=== PATIENT | female | born 1955 | race Caucasian/White ===

== ENCOUNTER 2024-05-09 22:31 | Emergency (ER) | payer MEDICARE, BC ==
[2024-05-10 00:26] LABS: #Basophils 0.08 10x3/uL (0.0-0.2); #Neutrophils 3.48 10x3/uL (1.5-8.4); %Basophils 1.1 % (0.0-2.0); %Lymphocytes 40.9 % (18.0-47.0); %Monocytes 7.9 % (0.0-10.0); Hematocrit 40.4 % (34.9-44.5); Hemoglobin 13.6 g/dL (12.0-15.5); Mean Corpuscular HGB CONC 33.7 g/dL (32.0-36.0); Mean Corpuscular Hemoglobin 30.1 pg (27.0-33.0); Mean Corpuscular Volume 89.4 fL (81.6-98.3); Mean Platelet Volume 9.8 fL (7.4-10.4); Platelet Count 293 10x3/uL (150-450); RBC Distribution Width 13.2 % (11.5-14.5); Red Blood Cell (RBC) Count 4.52 10x6/uL (3.90-5.03); White Blood Cell (WBC) Count 7.6 10x3/uL (3.5-10.5)
[2024-05-10 00:35] LABS: Acetaminophen Less than 10 mcg/mL (10.0-30.0); Alcohol Less than 10.0 mg/dL (Less than 10); Salicylate Less than 8.0 mg/dL (15.0-30.0)
[2024-05-10 00:36] LABS: ALT (SGPT) 14 U/L (8-55); AST (SGOT) 20 U/L (5-34); Alkaline Phosphatase 84 U/L (40-110); Anion Gap 12 mmol/L (10-20); BUN (Urea Nitrogen) 17 mg/dL (9.8-20.1); Bilirubin, Total 0.3 mg/dL (0.2-1.2); Calc. Creatinine Clearance 0 mL/min (70-130); Calcium 9.8 mg/dL (7.8-10.44); Carbon Dioxide 25 mmol/L (23-31); Chloride 106 mmol/L (98-107); Estimated GFR 50; Globulin 3.1 g/dL (2.4-3.5); Glucose 89 mg/dL (80-115); Potassium 4.4 mmol/L (3.5-5.1); Protein, Total 7.1 g/dL (5.8-8.1); Sodium 139 mmol/L (136-145)
== END 2024-05-10 02:13 ==
LOC: CSHERS 22:31
DX: F31.9 Bipolar disorder, unspecified (principal); E03.9 Hypothyroidism, unspecified; I10 Essential (primary) hypertension; Z79.899 Other long term (current) drug therapy
CPT/HCPCS: 80053; 80178; 80307; 84443; 85025; 99285

== ENCOUNTER 2024-05-15 17:41 | Emergency (ER) | payer MEDICARE, BC ==
[2024-05-15 18:38] LABS: Bilirubin Neg (Negative); Blood, Urine 25 (Negative); Glucose, Urine (Dipstick) Normal (Negative); Ketone, Urine Negative (Negative); Leukocyte 500 (Negative); Nitrite Positive (Negative); Protein, Urine (Dipstick) Negative (Neg-Trace); Specific Gravity, Urine 1.005 (1.005-1.030); Urobilinogen Normal mg/dL (Less than 2)
[2024-05-15 18:46] LABS: Clarity Hazy (Clear)
[2024-05-15 18:47] LABS: Bacteria/HPF 2+ HPF (None Seen); CAUTI Indications for Culture Alt mental st,lethar; RBC/HPF 0-3 HPF (0-3); Squamous Epithelial 0-3 HPF (0-3); WBC/HPF 21-50 HPF (0-3)
[2024-05-15 18:48] LABS: Urine Culture Reflex Yes Yes
[2024-05-15 18:59] LABS: #Basophils 0.08 10x3/uL (0.0-0.2); #Eosinphils 0.19 10x3/uL (0.0-0.5); #Monocytes 0.51 10x3/uL (0.0-1.1); #Neutrophils 3.88 10x3/uL (1.5-8.4); %Basophils 1.1 % (0.0-2.0); %Eosinophils 2.5 % (0.0-6.0); %Lymphocytes 37.6 % (18.0-47.0); %Monocytes 6.8 % (0.0-10.0); %Neutrophils 51.9 % (40.0-75.0); Hematocrit 38.4 % (34.9-44.5); Hemoglobin 12.9 g/dL (12.0-15.5); Mean Corpuscular HGB CONC 33.6 g/dL (32.0-36.0); Mean Corpuscular Hemoglobin 29.9 pg (27.0-33.0); Mean Corpuscular Volume 89.1 fL (81.6-98.3); Mean Platelet Volume 9.5 fL (7.4-10.4); Platelet Count 310 10x3/uL (150-450); Red Blood Cell (RBC) Count 4.31 10x6/uL (3.90-5.03); White Blood Cell (WBC) Count 7.5 10x3/uL (3.5-10.5)
[2024-05-15 19:15] LABS: ALT (SGPT) 10 U/L (8-55); AST (SGOT) 18 U/L (5-34); Albumin 3.9 g/dL (3.4-4.8); Alkaline Phosphatase 82 U/L (40-110); Anion Gap 13 mmol/L (10-20); BUN (Urea Nitrogen) 14 mg/dL (9.8-20.1); Bilirubin, Total 0.2 mg/dL (0.2-1.2); Calc. Creatinine Clearance 0 mL/min (70-130); Calcium 9.5 mg/dL (7.8-10.44); Carbon Dioxide 22 mmol/L (23-31); Chloride 106 mmol/L (98-107); Estimated GFR 52; Globulin 2.9 g/dL (2.4-3.5); Glucose 88 mg/dL (80-115); Lipase 39 U/L (8-78); Magnesium 2.4 mg/dL (1.6-2.6); Potassium 3.9 mmol/L (3.5-5.1); Protein, Total 6.8 g/dL (5.8-8.1); Sodium 137 mmol/L (136-145)
[2024-05-15 19:21] LABS: Troponin I Less than 0.010 ng/mL (< 0.028)
== END 2024-05-15 20:14 | disposition home or self-care (01) ==
LOC: CSHERS 17:41
DX: J32.0 Chronic maxillary sinusitis (principal); N39.0 Urinary tract infection, site not specified; I10 Essential (primary) hypertension; E78.00 Pure hypercholesterolemia, unspecified; F31.9 Bipolar disorder, unspecified; Z55.6 Problems related to health literacy
CPT/HCPCS: 36415; 70450; 71045; 72125; 80053; 81001; 83690; 83735; 83880; 84443; 84484; 85025; 87077; 87086; 87186; 93005

== ENCOUNTER 2025-07-23 22:27 | Emergency (ER) | payer MEDICARE, BC ==
[~2025-07-23 22:27] MED LIST: Iopamidol 300 61% 100 ML VIAL FS ONE
[2025-07-24 00:02] LABS: #Basophils 0.10 10x3/uL (0.0-0.2); #Eosinophils 0.46 10x3/uL (0.0-0.5); #Monocytes 0.80 10x3/uL (0.0-1.1); #Neutrophils 3.69 10x3/uL (1.5-8.4); %Basophils 1.2 % (0.0-2.0); %Eosinophils 5.6 % (0.0-6.0); %Lymphocytes 38.0 % (18.0-47.0); %Monocytes 9.8 % (0.0-10.0); %Neutrophils 45.2 % (40.0-75.0); Hematocrit 41.6 % (34.9-44.5); Hemoglobin 14.0 g/dL (12.0-15.5); Mean Corpuscular Hemoglobin 30.0 pg (27.0-33.0); Mean Corpuscular Volume 89.1 fL (81.6-98.3); Platelet Count 287 10x3/uL (150-450); Red Blood Cell (RBC) Count 4.67 10x6/uL (3.90-5.03); White Blood Cell (WBC) Count 8.18 10x3/uL (3.5-10.5)
[2025-07-24 00:13] LABS: ALT (SGPT) 17 U/L (Less than 34); AST (SGOT) 34 U/L (11-34); Albumin 4.2 g/dL (3.1-4.5); Alkaline Phosphatase 75 U/L (40-110); Anion Gap 16 mmol/L (10-20); BUN (Urea Nitrogen) 27 mg/dL (9.8-20.1); Bilirubin, Total 0.2 mg/dL (0.3-1.2); Calc. Creatinine Clearance 0 mL/min (70-130); Calcium 10.0 mg/dL (7.8-10.44); Carbon Dioxide 26 mmol/L (23-31); Globulin 3.6 g/dL (2.4-3.5); Glucose 121 mg/dL (80-115); Lipase 73 U/L (8-78); Potassium 3.8 mmol/L (3.5-5.1); Sodium 141 mmol/L (136-145)
[2025-07-24 00:16] LABS: Chloride 103 mmol/L (98-107)
== END 2025-07-24 02:30 | disposition home or self-care (01) ==
LOC: CSHERS 22:27
DX: K62.89 Other specified diseases of anus and rectum (principal); I10 Essential (primary) hypertension; E03.9 Hypothyroidism, unspecified; F32.A Depression, unspecified; Z79.890 Hormone replacement therapy; Z79.899 Other long term (current) drug therapy
CPT/HCPCS: 74177; 80053; 83690; 85025; Q9967

== ENCOUNTER 2025-10-09 13:57 | Outpatient (CLI) | payer MEDICARE, BC | END 2025-10-09 13:58 | disposition home or self-care (01) | LOC: CSHCT 13:57 | PROVIDERS: ATTEND Otolaryngology Otolaryngic Allergy | DX: J32.9 Chronic sinusitis, unspecified (principal); J34.9 Unspecified disorder of nose and nasal sinuses; K01.1 Impacted teeth ==

== ENCOUNTER 2025-10-19 16:28 | Emergency (ER) | payer MEDICARE, BC ==
[~2025-10-19 16:28] MED LIST changes: +Etomidate 40 MG (20 mL) VIAL ONE; -Iopamidol 300 61% 100 ML VIAL FS ONE; +Rocuronium Bromide 10 MG/ML (10ML VIAL) ONE
[2025-10-19] MEDS ORDERED: Ketorolac Tromethamine 30 MG (1 mL) VIAL ONE (17:35)
[2025-10-19 18:25] LABS: #Basophils 0.06 10x3/uL (0.0-0.2); #Eosinophils Less than 0.03 10x3/uL (0.0-0.5); #Monocytes 0.75 10x3/uL (0.0-1.1); #Neutrophils 13.85 10x3/uL (1.5-8.4); %Basophils 0.4 % (0.0-2.0); %Eosinophils 0.0 % (0.0-6.0); %Lymphocytes 10.7 % (18.0-47.0); %Monocytes 4.5 % (0.0-10.0); %Neutrophils 83.9 % (40.0-75.0); Hematocrit 43.3 % (34.9-44.5); Hemoglobin 14.7 g/dL (12.0-15.5); Mean Corpuscular Hemoglobin 30.2 pg (27.0-33.0); Mean Corpuscular Volume 88.9 fL (81.6-98.3); Platelet Count 253 10x3/uL (150-450); Red Blood Cell (RBC) Count 4.87 10x6/uL (3.90-5.03); White Blood Cell (WBC) Count 16.50 10x3/uL (3.5-10.5)
[2025-10-19 18:46] LABS: Troponin I Less than 0.010 ng/mL (< 0.028)
[2025-10-19 19:09] LABS: Anion Gap 19 mmol/L (10-20); Chloride 100 mmol/L (98-107); Potassium 3.7 mmol/L (3.5-5.1); Sodium 137 mmol/L (136-145)
[2025-10-19 19:15] LABS: ALT (SGPT) 13 U/L (Less than 34); AST (SGOT) 20 U/L (11-34); Albumin 3.5 g/dL (3.1-4.5); Alkaline Phosphatase 63 U/L (40-110); BUN (Urea Nitrogen) 27 mg/dL (9.8-20.1); Bilirubin, Total 0.4 mg/dL (0.3-1.2); CK (CPK) 53 U/L (29-168); Calc. Creatinine Clearance 0 mL/min (70-130); Calcium 9.3 mg/dL (7.8-10.44); Carbon Dioxide 23 mmol/L (23-31); Globulin 3.4 g/dL (2.4-3.5); Glucose 120 mg/dL (80-115); Magnesium 2.2 mg/dL (1.6-2.6)
[2025-10-19 23:01] LABS: Glucose, Urine (Dipstick) Normal (Negative); Leukocyte 500 (Negative); Protein, Urine (Dipstick) 100 mg/dl (Neg-Trace); Specific Gravity, Urine 1.015 (1.005-1.030)
[2025-10-19 23:09] LABS: Bacteria/HPF 2+ HPF (None Seen); CAUTI Indications for Culture Alt mental st,lethar; WBC/HPF Greater than 50 HPF (0-3)
[2025-10-19 23:10] LABS: Urine Culture Reflex Yes Yes
[2025-10-19] MEDS ORDERED: cefTRIAXone (ROCEPHIN) 2 GM VIAL ONE (23:22)
[2025-10-20 01:19] LABS: Actual Bicarbonate (HCO3a) 20.3 mEq/L (22-28); Analyzer IN Cardio CS ER; Base Excess (BEa) -3.3 mEq/L (-2.0 to +3.0); CO2 Tension 32.5 mmHg (35.0-45.0); Calcium, Ionized (arterial) 1.11 mmol/L (1.12-1.30); Hematocrit-ABG 41 % (36.0-47.0); Hemoglobin (Hb) 14.0 g/dL (12.0-16.0); O2 Tension (PaO2), arterial 71.6 mmHg (> 80.0); Potassium - ABG Lab 3.24 mmol/L (3.70-5.30); Puncture Site Right Brachial art; RapidComm Collect By CP.SDG; pH, Arterial 7.414 (7.35-7.45)
== END 2025-10-20 02:19 | disposition short-term general hospital (02) ==
LOC: CSHERS 16:28
DX: S12.300A Unspecified displaced fracture of fourth cervical vertebra, initial encounter for closed fracture (principal); R41.82 Altered mental status, unspecified; N17.9 Acute kidney failure, unspecified; N39.0 Urinary tract infection, site not specified; I10 Essential (primary) hypertension; Z55.6 Problems related to health literacy; Z75.3 Unavailability and inaccessibility of health-care facilities; W19.XXXA Unspecified fall, initial encounter
CPT/HCPCS: 31500; 36600; 70450; 70498; 71045; 72125; 80053; 81001; 82140; 82550; 82805; 83735; 84484; 85025; 87077; 87086; 87186; 87428; 93005; 94002; 96374; 96375; J0295; J0696; J1885; J2704